=== PATIENT | female | born 1950 | race Caucasian/White ===

== ENCOUNTER 2021-01-05 11:19 | Outpatient (REF) | payer SELFPAY | END 2021-01-05 11:20 | disposition home or self-care (01) | LOC: HO.SCI 11:19 | PROVIDERS: Visit Provider Internal Medicine | DX: Z13.89 Encounter for screening for other disorder (principal) ==

== ENCOUNTER 2021-01-11 07:38 | Outpatient (REF) | payer OTHER, MEDICARE, SELFPAY ==
--- NOTE | ~2021-01-11 | MR_ITS ---
EXAMINATION: MR ABDOMEN WITHOUT CONTRAST CLINICAL INFORMATION: Abdominal pain. Dilated common bile duct. Post cholecystectomy. COMPARISON: Outside abdominal ultrasound report 12/28/2020 TECHNIQUE: MR abdomen is performed without gadolinium contrast. MRCP sequences were also performed. FINDINGS: LUNG BASES: The visualized lung bases are unremarkable. LIVER, GALLBLADDER, AND BILIARY TREE: The liver is normal in size, smooth in contour, and normal in signal. There are several small dark on T1- and bright on T2-weighted sequences lesions in the liver probably representing small cysts. The largest measures 3 mm in the lateral segment of the left lobe, for example axial T2 image 11 series 7. No other focal liver lesion is seen. The gallbladder has been removed. There is mild intrahepatic biliary duct dilatation, left lobe greater than right. The extrahepatic bile ducts are dilated. The extrahepatic bile ducts measure up to 1.8 cm proximally and 0.8 cm distally in the head of the pancreas. No filling defect or mass is seen. PANCREAS: Unremarkable. The pancreas is normal in signal. The main pancreatic duct does not appear dilated. SPLEEN: Unremarkable. ADRENAL GLANDS: Unremarkable. KIDNEYS AND URETERS: The kidneys are normal in size and shape. There are several small dark on T1- and bright on T2-weighted sequences renal lesions suggestive of cysts. The largest measures 1 cm in the upper pole of the right kidney. No hydronephrosis. No perinephric stranding. GASTROINTESTINAL TRACT: No bowel obstruction. No ascites or fluid collection. ABDOMINAL WALL: No significant hernia is appreciated. LYMPH NODES: No lymphadenopathy. VASCULAR: Unremarkable. 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 MR/MR abdomen wo con IMPRESSION: Intrahepatic and extrahepatic biliary duct dilatation. Extrahepatic bile ducts measure up to 1.8 cm proximally and 0.8 cm distally in the head of the pancreas. No stone or mass is seen. Small probable liver and bilateral renal cysts.
[2021-01-11 08:41] LABS: MANUAL DIFF FLAG NO
[2021-01-11 08:45] LABS: Basophils Percent Auto 0.7 % (0-2); Eosinophils Absolute Auto 0.1 X10*3/uL (0.0-0.4); Eosinophils Percent Auto 1.6 % (0-4); Hematocrit 40.6 % (37-47); Hemoglobin 13.1 g/dl (12.0-16.0); Imm Gran Abs Auto 0.01 X10*3/uL (0.00-0.03); Imm Gran Pct Auto 0.2 % (0.0-0.4); Lymphocytes Absolute Auto 2.3 X10*3/uL (1.2-4.9); Lymphocytes Percent Auto 40.8 % (20-40); Mean Corpuscular HGB Conc 32.3 g/dl (31.0-35.0); Mean Corpuscular Hemoglobin 29.5 pg (27.0-33.0); Mean Corpuscular Volume 91.4 fL (80-98); Mean Platelet Volume 9.2 fL (9.4-12.3); Monocytes Absolute Auto 0.4 X10*3/uL (0.1-1.2); Neutrophils Absolute Auto 2.8 X10*3/uL (2.0-8.3); Neutrophils Percent Auto 49.7 % (45-73); Platelet Count 269 X10*3/uL (160-400); Red Blood Count 4.44 X10*6/uL (4.20-5.50); Red Cell Distribution Width 12.6 % (11.0-16.0); White Blood Count 5.6 X10*3/uL (4.8-10.8)
[2021-01-11 09:13] LABS: Alanine Aminotransferase 38 U/L (0-31); Albumin Level 4.1 g/dL (3.5-5.0); Alkaline Phosphatase 94 U/L (39-117); Amylase 80 U/L (28-100); Aspartate Amino Transferase 32 U/L (5-31); Bilirubin Direct 0.2 mg/dL (0.0-0.5); Bilirubin Total 0.4 mg/dL (0.0-1.0); Lipase 19 U/L (8-78); Total Protein 6.5 g/dL (6.5-8.0)
== END 2021-01-11 07:39 | disposition home or self-care (01) ==
LOC: HO.MRI 07:38
PROVIDERS: PCP Internal Medicine; Visit Provider Internal Medicine
DX: R10.84 Generalized abdominal pain (principal); K83.9 Disease of biliary tract, unspecified
CPT/HCPCS: 36415; 74181; 80076; 82150; 83690; 85025